=== PATIENT | female | born 1990 | race Caucasian/White ===

== ENCOUNTER 2017-05-25 08:54 | Emergency (ER) | payer BC ==
[2017-05-25 09:14] VITALS: BP 100/61
--- NOTE | 2017-05-25 09:52 | UC ---
UC General HPI - HPI Summary HPI Summary: Pt presents with sore throat, progressive body aches and nausea since last night. Pt reports non-productive cough. Left ear pain x 24 hours No n/v/d. Decreased appetite No sick contacts. Pt works at [employer] . No analgesia take today pt is on macrobid for a UTI prescribed by a provider through her insurance co Pt's medications reviewed - History of Current Complaint Chief Complaint: UCRespiratory Stated Complaint: SORE THROAT, CHILLS Time Seen by Provider: 05/25/17 09:34 Hx Obtained From: Patient Hx Last Menstrual Period: 05/19/17 Onset/Duration: Gradual Onset, Lasting Days - 24 hours Timing: Constant Onset Severity: Moderate Current Severity: Moderate Pain Intensity: 5 Associated Signs & Symptoms: Positive: Headache, Nausea, Weakness - Allergy/Home Medications Allergies/Adverse Reactions: Allergies Allergy/AdvReac Type Severity Reaction Status Date / Time No Known Allergies Allergy Verified 05/25/17 09:15 Home Medications: Home Medications Nitrofurantoin Macrocrystals* [Macrodantin*] 100 mg PO BID 05/25/17 [History Confirmed 05/25/17] PMH/Surg Hx/FS Hx/Imm Hx Previously Healthy: Yes - Surgical History Surgical History: Yes Surgery Procedure, Year, and Place: 2006--ABDOMINAL EXPLORATORY SX - Family History Known Family History: Negative: Diabetes - Social History Occupation: Employed Full-time Lives: With Family Alcohol Use: Occasionally Substance Use Type: None Smoking Status (MU): Never Smoked Tobacco Review of Systems Constitutional: Fever ENT: Sore Throat Gastrointestinal: Nausea Motor: Other - myalgias All Other Systems Reviewed And Are Negative: Yes Physical Exam Triage Information Reviewed: Yes Appearance: Well-Appearing, No Pain Distress, Well-Nourished, Other: - Pt tired appearing, appropriate A+O Vital Signs: Initial Vital Signs Temp 99.2 F 05/25/17 09:09 Pulse 101 05/25/17 09:09 Resp 16 05/25/17 09:09 BP 100/61 05/25/17 09:09 Pulse Ox 100 05/25/17 09:09 Eye Exam: Normal Eyes: Positive: Conjunctiva Clear ENT: Positive: Hearing grossly normal, Nasal congestion, Other - left TM scant fluid, no erythema, no edema turbinates inflammed, boggy + PND no erythema, no exudate uvula midline Neck exam: Normal Neck: Positive: Supple, Nontender Respiratory Exam: Normal Respiratory: Positive: Chest non-tender, Lungs clear, Normal breath sounds, No respiratory distress, No accessory muscle use Cardiovascular Exam: Normal Cardiovascular: Positive: RRR, No Murmur, Pulses Normal Abdominal Exam: Normal Abdomen Description: Positive: Nontender, No Organomegaly, Soft Bowel Sounds: Positive: Present Musculoskeletal Exam: Normal Musculoskeletal: Positive: Strength Intact, ROM Intact, No Edema Neurological Exam: Normal Neurological: Positive: Alert Psychological Exam: Normal Psychological: Positive: Normal Response To Family Skin Exam: Normal Re-Evaluation - Re-Evaluation First Eval Comment: reviewed with pt neg strep, flu. Pt with interval developmed of temp. Will start tamiflu given presentation. motrin/apap. secretion precaution, return precaution. pt comfortable and in agreement with plan Course/Dx - Course Course Of Treatment: Pt with body aches, sore throat, nausea and mylagias. Will recheck temp= feels warm to palp. APAP. strep. flu. will check urine - pt on abx. Pt comfortable and in agreement with plan - Differential Dx - Multi-Symptom Provider Diagnoses: influenza-like illness Discharge - Sign-Out/Discharge Documenting (check all that apply): Discharge - Discharge Plan Condition: Stable Disposition: HOME Prescriptions: Oseltamivir Phosphate [Tamiflu] 75 mg PO BID #10 capsule Patient Education Materials: Viral Syndrome (ED) Forms: *Work Release Referrals: Grace Maguire MD [Primary Care Provider] - Additional Instructions: - Stay well hydrated. Drink plenty of non-alcoholic, non-caffinated beverages. - Alternate ibuprofen (Advil, Motrin) 600mg and Tylenol every 3 hours for pain or fever. Take with food. Do NOT take for more than 4-5 days. - These infections are spread by secretions - do NOT share eating or drinking utensils - clean items you share with other people such as cell phones, computer mouse, TV remote, computer tablets, etc. After you have taken Tamiflu , change your toothbrush and your pillowcase. - get plenty of restful sleep - humidify the air in the room where you sleep - boil water, run a hot steam shower, vaporizer, cups of water by heat register - okay to take over the counter decongestant and cough medication - contact your doctor or return with questions or concerns - Billing Disposition and Condition Condition: STABLE Disposition: HOME
[2017-05-25] MEDS ORDERED: Acetaminophen TAB* 325 MG PO ONE (09:58)
--- NOTE | 2017-05-26 16:27 | UC ---
- Progress Note Progress Note: Pt with negative mono Please call and update pt this result Naveen 05/26/2017 Re-Evaluation - Re-Evaluation First Eval Comment: reviewed with pt neg strep, flu. Pt with interval developmed of temp. Will start tamiflu given presentation. motrin/apap. secretion precaution, return precaution. pt comfortable and in agreement with plan Discharge - Sign-Out/Discharge Documenting (check all that apply): Discharge - Discharge Plan Condition: Stable Disposition: HOME Prescriptions: Oseltamivir Phosphate [Tamiflu] 75 mg PO BID #10 capsule Patient Education Materials: Viral Syndrome (ED) Forms: *Work Release Referrals: Grace Maguire MD [Primary Care Provider] - Additional Instructions: - Stay well hydrated. Drink plenty of non-alcoholic, non-caffinated beverages. - Alternate ibuprofen (Advil, Motrin) 600mg and Tylenol every 3 hours for pain or fever. Take with food. Do NOT take for more than 4-5 days. - These infections are spread by secretions - do NOT share eating or drinking utensils - clean items you share with other people such as cell phones, computer mouse, TV remote, computer tablets, etc. After you have taken Tamiflu , change your toothbrush and your pillowcase. - get plenty of restful sleep - humidify the air in the room where you sleep - boil water, run a hot steam shower, vaporizer, cups of water by heat register - okay to take over the counter decongestant and cough medication - contact your doctor or return with questions or concerns - Billing Disposition and Condition Condition: STABLE Disposition: HOME
== END 2017-05-25 10:34 | disposition home or self-care (01) ==
LOC: UCCORT 08:54
DX: J11.1 Influenza due to unidentified influenza virus with other respiratory manifestations (principal); Z32.02 Encounter for pregnancy test, result negative
CPT/HCPCS: 81003; 84702; 87502; 87651; 99212; A9270-GY; G0463

== ENCOUNTER 2017-05-26 07:02 | Emergency (ER) | payer BC ==
[2017-05-26 07:24] VITALS: BP 106/66
--- NOTE | 2017-05-26 07:42 | UC ---
Throat Pain/Nasal Jose D HPI - HPI Summary HPI Summary: sore throat x 2 days pain is sever, worse this morning no fever, + chills, was seen at [facility] yesterday , negative rapid strep no cough, no runny nose - History of Current Complaint Chief Complaint: UCGeneralIllness Stated Complaint: RE-CHECK SORE THROAT Time Seen by Provider: 05/26/17 07:25 Hx Obtained From: Patient Hx Last Menstrual Period: 05/19/17 Onset/Duration: Gradual Onset, Lasting Days - 2, Still Present, Worse Since - this morning Severity: Severe Pain Intensity: 7 Cough: None Associated Signs & Symptoms: Negative: Dysphagia, FB Sensation, Wheezing, Hoarseness, Sinus Discomfort, Nasal Discharge, Fever, Vomiting, Rash - Allergies/Home Medications Allergies/Adverse Reactions: Allergies Allergy/AdvReac Type Severity Reaction Status Date / Time No Known Allergies Allergy Verified 05/26/17 07:18 Home Medications: Home Medications Acetaminophen [Acetaminophen Extra Strength] 2 tab PO Q6HR PRN 05/26/17 [ History Confirmed 05/26/17] PMH/Surg Hx/FS Hx/Imm Hx Previously Healthy: Yes - Surgical History Surgical History: Yes Surgery Procedure, Year, and Place: 2006--ABDOMINAL EXPLORATORY SX - Family History Known Family History: Negative: Diabetes - Social History Alcohol Use: Occasionally Substance Use Type: None Smoking Status (MU): Never Smoked Tobacco Review of Systems Constitutional: Negative Skin: Negative Eyes: Negative ENT: Sore Throat Respiratory: Negative Cardiovascular: Negative Is Patient Immunocompromised?: No All Other Systems Reviewed And Are Negative: Yes Physical Exam Triage Information Reviewed: Yes Appearance: Well-Nourished, Pain Distress Vital Signs: Initial Vital Signs Temp 98.4 F 05/26/17 07:19 Pulse 98 05/26/17 07:19 Resp 14 05/26/17 07:19 BP 106/66 05/26/17 07:19 Pulse Ox 100 05/26/17 07:19 Vital Signs Reviewed: Yes Eyes: Positive: Conjunctiva Clear ENT: Positive: Normal ENT inspection, Hearing grossly normal, Pharyngeal erythema, TMs normal. Negative: Nasal congestion, Nasal drainage, Tonsillar swelling, Tonsillar exudate Neck exam: Normal Neck: Positive: Supple, Tenderness @, Enlarged Nodes @ Respiratory: Positive: Chest non-tender, Lungs clear, Normal breath sounds Cardiovascular: Positive: Tachycardia Abdominal Exam: Normal Abdomen Description: Positive: Nontender, No Organomegaly, Soft. Negative: CVA Tenderness (R), CVA Tenderness (L), Distended, Guarding Skin Exam: Normal Throat Pain/Nasal Course/Dx - Differential Dx/Diagnosis Provider Diagnoses: PHARYNGITIS Discharge - Sign-Out/Discharge Documenting (check all that apply): Discharge - Discharge Plan Condition: Stable Disposition: HOME Prescriptions: Amoxicillin PO (*) [Amoxicillin 875 MG (*)] 875 mg PO BID #20 tab predniSONE TAB* [Deltasone TAB*] 20 mg PO DAILY #5 tab Patient Education Materials: Pharyngitis (ED) Referrals: Grace Maguire MD [Primary Care Provider] - 7 Days Additional Instructions: will check for Phelps start antibiotics , may stop abx if + for mono cont. with rest, increase fluid, take Tylenol as needed for pain Prednisone 20 mg daily - Billing Disposition and Condition Condition: STABLE Disposition: HOME
== END 2017-05-26 07:45 | disposition home or self-care (01) ==
LOC: UCCORT 07:02
DX: J02.9 Acute pharyngitis, unspecified (principal)
CPT/HCPCS: 36415; 86308; 86664; 86665; 99212; G0463

== ENCOUNTER 2017-06-09 17:12 | Emergency (ER) | payer BC ==
--- OUTSIDE RECORDS SUMMARY | 2017-06-09 17:40 | XMS REPORT ---
:1990 External Reference #:[id number] Author Organization [facility] Address [address], [address] [place] [address] Phone [phone] Care Team Providers Name Role Phone Rose Lee M.D. Primary Care Physician Unavailable Payers Type Date Identification Numbers Payment Provider Subscriber Commercial Policy Number: [id number] Brisa Thompson PayID: [id number] [address] [address] [place] [address] Problems Date Description Provider Status Onset: 01/17/2015 Crohn's disease of ileum Charly Martin MD Active Onset: 03/23/2015 Crohn's disease Rose Lee M.D. Active Social History Type Date Description Comments Lives With Parents Occupation General Maintenance Engineer ETOH Use Occasionally consumes alcohol Smoking Patient has never smoked Allergies, Adverse Reactions, Alerts Date Description Reaction Status Severity Comments 03/23/2015 NKDA active Medications Medication Date Status Form Strength Qnty SIG Indications Ordering Provider Spironolactone Active Tablets 100mg Unknown /0000 Desogestrel-Eth Active Tablets 0.15-30mg 28tab take 1 newton Dailey Estradiol / -mcg s pill by Reanna mouth every daily Amoxicillin Active Tablets 875mg Grayson, / MD Joni Prednisone Active Tablets 20mg Zarrchar, MD Joni Humira Pen Active PNKT 40mg/0.8M Unknown /0000 L Diflucan 10/14 Hx Tablets 150mg 1tabs take 1 by Alana mouth Clune, EDUCATIONAL THERAPIST - 10/25 Budesonide ER 00/00 Hx Caps ER 3mg as Unknown /0000 24HR instructed - 10/10 Humira 00 Hx PSKT 40mg/0.8M 2 x per Rose Lee, /0000 L month M.D. - 11/22 Mercaptopurine 00/00 Hx Tablets 50mg PO Q Daily Unknown /0000 - 11/22 Tramadol HCL 00 Hx Tablets 50mg take one Unknown /0000 tablet by - mouth prn 10/10 Immunizations CPT Code Status Date Vaccine Lot # [id number] Given 11/23/2015 Influenza Virus Vaccine Split Virus Use For Individual 3Yr Older 23065 Given 10/10/2006 Meningococcal Conjugate Vaccine Serogroups For Intramuscular Use 31777 Given 10/04/2003 Tetnus Injection Vital Signs Date Vital Result Comment 05/27/2017 Body Temperature 97.7 F Heart Rate 87 /min Respiratory Rate 16 /min Height 66 inches 5'6" Weight 118.00 lb BMI (Body Mass Index) 19.0 kg/m2 BSA (Body Surface Area) 1.60 m2 [place] body weight in kilograms 59 O2 % BldC Oximetry 98 % 11/23/2015 BP Systolic 108 mmHg BP Diastolic 64 mmHg Height 66 inches 5'6" Weight 126.50 lb BMI (Body Mass Index) 20.4 kg/m2 BSA (Body Surface Area) 1.65 m2 [place] body weight in kilograms 59 Last Menstrual Period [id number] 10/11/2015 BP Systolic Sitting Left Arm 110 mmHg BP Diastolic Sitting Left Arm 72 mmHg Body Temperature 97.6 F Height 66 inches 5'6" Weight 128.00 lb BMI (Body Mass Index) 20.7 kg/m2 BSA (Body Surface Area) 1.65 m2 [place] body weight in kilograms 59 Last Menstrual Period [id number] 03/23/2015 BP Systolic 108 mmHg BP Diastolic 64 mmHg Height 66 inches 5'6" Weight 120.12 lb BMI (Body Mass Index) 19.4 kg/m2 BSA (Body Surface Area) 1.61 m2 Last Menstrual Period [id number] 01/17/2015 BP Systolic 100 mmHg BP Diastolic 60 mmHg Heart Rate 72 /min Height 66 inches Weight 118.00 lb BMI (Body Mass Index) 19.0 kg/m2 Results Test Date Test Result H/L Range Note Laboratory test finding 05/26/2017 Monospot Negative Negative 1, 2 Rapid Influenza A & 05/25/2017 Influenza A Molecular NEGATIVE Negative 3 B Molecular Influenza B Molecular NEGATIVE Negative Laboratory test finding 05/25/2017 Poc , Urine Negative Negative 4 Poc Urinalysis 05/25/2017 Poc Glucose, Urine Negative Negative Poc Bilirubin, Urine Negative Negative Poc Ketone, Urine Trace Negative Poc Specific [place], Urine 1.015 1.010-1.030 Poc Blood, Urine Negative Negative Poc pH, Urine 5.5 5-9 Poc Protein, Urine Negative Negative Poc Urobilinogen, Urine 0.2 Negative Poc Nitrite, Urine Negative Negative Poc Leukocytes, Urine Negative Negative Poc Color, Urine Yellow Poc Clarity, Urine Clear 5 Laboratory test finding 05/25/2017 Rapid Strep Molecular Negative Negative 6 Pap+GC/CT+RFX HPV+ RFX gt 11/23/2015 CoPathPlus GC- CT- 7 Affirm 10/11/2015 Maggie POSITIVE 8 Gardnerella NEGATIVE Trichomonas NEGATIVE Laboratory test finding 03/28/2015 Vitamin B12 <pending> Urine Culture 03/23/2015 Urine Culture NO GROWTH: FINAL <SEE 9, 10 NOTE> Urinalysis Profile 01/23/2015 Urine Color Yellow Urine Appearance Cloudy Urine Specific [place] 1.018 1.010-1.030 Urine pH 5.0 5-9 Urine Urobilinogen Negative Negative Urine Ketones Negative Negative Urine Protein Negative Negative Urine Leukocytes Negative Negative Urine Blood Negative Negative Urine Nitrite Negative Negative Urine Bilirubin Negative Negative Urine Glucose Negative Negative CBC Auto Diff 01/23/2015 White Blood Count 9.8 10^3/uL 4.8-10.8 Red Blood Count 4.58 10^6/uL 4.0-5.4 Hemoglobin 12.7 g/dL 12.0-16.0 Hematocrit 39 % 35-47 Mean Corpuscular Volume 84 fL 80-97 Mean Corpuscular Hemoglobin 28 pg 27-31 Mean Corpuscular HGB Conc 33 g/dL 31-36 Red Cell Distribution Width 13 % 10.5-15 Platelet Count 290 10^3/uL 150-450 Mean Platelet Volume 8 um3 7.4-10.4 Abs Neutrophils 8.0 10^3/uL High 1.5-7.7 Abs Lymphocytes 1.0 10^3/uL 1.0-4.8 Abs Monocytes 0.6 10^3/uL 0-0.8 Abs Eosinophils 0.1 10^3/uL 0-0.6 Abs Basophils 0 10^3/uL 0-0.2 Abs Nucleated RBC 0.01 10^3/uL Granulocyte % 81.6 % 38-83 Lymphocyte % 10.7 % Low 25-47 Monocyte % 6.3 % 1-9 Eosinophil % 1.0 % 0-6 Basophil % 0.4 % 0-2 Nucleated Red Blood Cells % 0.1 Laboratory test finding 01/23/2015 Lactic Acid 0.8 mmol/L 0.5-2.2 Comp Metabolic Panel 01/23/2015 Sodium 136 mmol/L 133-145 Potassium 3.8 mmol/L 3.5-5.0 Chloride 101 mmol/L 101-111 Co2 Carbon Dioxide 25 mmol/L 22-32 Anion Gap 10 mmol/L 2-11 Glucose 74 mg/dL 70-100 Blood Urea Nitrogen 10 mg/dL 6-24 Creatinine 0.77 mg/dL 0.51-0.95 BUN/Creatinine Ratio 13.0 8-20 Calcium 9.6 mg/dL 8.6-10.3 Total Protein 7.7 g/dL 6.4-8.9 Albumin 4.1 g/dL 3.2-5.2 Globulin 3.6 g/dL 2-4 Albumin/Globulin Ratio 1.1 1-3 Total Bilirubin 0.30 mg/dL 0.2-1.0 Alkaline Phosphatase 71 U/L 34-104 Alt 15 U/L 7-52 Ast 12 U/L Low 13-39 Egfr Non- 90.6 >60 Egfr 116.5 >60 11 Laboratory test finding 01/23/2015 Lipase 20 U/L 11.0-82.0 C Reactive Protein 82.70 mg/L High < 5.00 12 Serum Negative Negative 1 [id number] 2 [id number] Would you like an EBV if Monospot is Negative?: Y 3 Marble Worker: [id number] 4 Marble Worker: [id number] If is still suspected, please repeat test after 48 to 72 hours. 5 Marble Worker: [id number] 6 Marble Worker: [id number] Interpretation: NEGATIVE FOR INTRAEPITHELIAL LESION OR MALIGNANCY. Specimen Adequacy: SATISFACTORY FOR EVALUATION. Additional Findings: ENDOCERVICAL/TRANSFORMATION ZONE PRESENT. This liquid-based ThinPrep Pap Test was screened with the use of the ThinPrep Imaging System and was reported using [place] System descriptive nomenclature. Cytology Laboratory [address], [address] [place] [address] CYTOLOGY REPORT Name: Caroline Thompson : 1990 (Age: 24) Sex: F Location: [facility] Med. Rec. # [id number] Date Collected: 11/23/2015 Billing #: [id number] Date Received: 11/23/2015 Requisition # [id number] Physician(s): ROSE LEE MD Source of Specimen: ENDOCERVICAL/ECTOCERVICAL THIN PREP Clinical Information: Date of Last Menstrual Period: 2 weeks ago Hormonal History: OCPs dcl Electronic Signature KONRAD Fraser (ASCP) Reported: 11/27/2015 [employer] [facility] Neisseria gonorrhoeae Date Ordered: 11/24/2015 Status: Signed Out Date Reported: 11/24/2015 Neisseria gonorrhoeae NEGATIVE Electronic Signature Kym Ball [facility] [employer] [facility] Chlamydia trachomatis Date Ordered: 11/24/2015 Status: Signed Out Date Reported: 11/24/2015 Chlamydia trachomatis NEGATIVE Electronic [facility] [facility] Dx Code(s): Z01.419 8 Special Testing Laboratory [address], [address] [place] [address] AFFIRM VAGINOSIS / VAGINITIS REPORT Name: Caroline Thompson : 1990 (Age: 24) Sex: F Location: [facility] Med. Rec. # [id number] Date Collected: 10/11/2015 Billing #: [id number] Date Received: 10/12/2015 Requisition # [id number] Physician(s): ALANA MOTA Source of Specimen: Vaginal Results: Maggie species DNA Probe POSITIVE Gardnerella vaginalis DNA Probe NEGATIVE Trichomonas vaginalis DNA Probe NEGATIVE Reported: 10/13/2015 Electronic Signature am Bennie Melo MLS (ASCP ) [facility] Dx Code(s): N76.0 9 NO GROWTH: FINAL REPORT 10 03/28/15 (FriMar 28) 09:51 AM ROSE LEE called with negative result and left VM 11 Because ethnic data is not always readily available, this report includes an eGFR for both -Americans and non- Americans. The National Kidney Disease Education Program (NKDEP) does not endorse the use of the MDRD equation for patients that are not between the ages of 18 and 70, are , have extremes of body size, muscle mass, or nutritional status, or are non- or non-. According to the National Kidney Foundation, irrespective of diagnosis, the stage of the disease is based on the level of kidney function: Stage Description GFR(mL/min/1.73 m(2)) 1 Kidney damage with normal or decreased GFR 90 2 Kidney damage with mild decrease in GFR 60-89 3 Moderate decrease in GFR 30-59 4 Severe decrease in GFR 15-29 5 Kidney failure <15 (or dialysis) 12 Acute inflammation: >10.00 Procedures Date CPT Code Description Status Comment 05/27/2017 48412 Pulse Oximetry Completed 10/25/[address] Nathan, Q5 years Encounters Type Date Location Provider CPT E/M Dx Office Visit 05/27/2017 2:00p Family Medicine MENDY Pérez, 63037 J03.90 EDUCATIONAL THERAPIST, [facility] Office Visit 11/23/2015 2:45p Family Medicine Rose Lee M.D. 89419 Z01.419 Z23 Office Visit 10/11/2015 1:15p Family Medicine NAKUL Roper 09854 N76.0 Office Visit 03/23/2015 1:15p Family Medicine Rose Lee M.D. 69387 Z00.01 R30.0 R05 K50.90 Plan of Care 05/27/2017 - MENDY Pérez, EDUCATIONAL THERAPIST, ZklafM76.90 Acute tonsillitis, unspecifiedComments:continue current treatment with abx and sterids, tylenols as needed for painonce your mono results are back if it's negative then you will probably be good once you finish your abx and sterids. if youare mono positive it's harder to say what the course might be. we'll have to wait and see.call if not continuing to improve over the next 3-5 days, new fever, new concerns/quest ins.
[2017-06-09 17:56] VITALS: BP 116/72
--- NOTE | 2017-06-09 18:46 | UC ---
Throat Pain/Nasal Jose D HPI - HPI Summary HPI Summary: Pt presents with recurrent sore throat. Pt was seen earlier this month. neg rapid strep, mono and flu. Pt had a coarse of abx, tamiflu, and prednisone. pt states was feeling better until friday. Pt states sx returned. painful with swallowing. + PND,. Pt did change toothbrush and wash pillowcase. Pt did take APAP with little relief. No drooling. Painful swallowing. Pt denies fever, chills. Pt does take humira- has not taken > 3 weeks. Pt's medications reviewed this visit - History of Current Complaint Chief Complaint: UCGeneralIllness Stated Complaint: SORE THROAT - RECHECK Time Seen by Provider: 06/09/17 18:40 Hx Obtained From: Patient Hx Last Menstrual Period: 05/20/17 Onset/Duration: Gradual Onset Pain Intensity: 7 Pain Scale Used: 0-10 Numeric - Allergies/Home Medications Allergies/Adverse Reactions: Allergies Allergy/AdvReac Type Severity Reaction Status Date / Time No Known Allergies Allergy Verified 06/09/17 17:43 Home Medications: Home Medications Adalimumab [Humira] 20 mg SC SEE INSTRUCTIONS 06/09/17 [History Confirmed ] PMH/Surg Hx/FS Hx/Imm Hx Previously Healthy: Yes GI/ History: Other - crohn's Other GI/ History: Crohn's - Surgical History Surgical History: Yes Surgery Procedure, Year, and Place: 2006--ABDOMINAL EXPLORATORY SX - Family History Known Family History: Positive: None Negative: Diabetes - Social History Occupation: Employed Full-time Lives: With Family Alcohol Use: Occasionally Substance Use Type: None Smoking Status (MU): Never Smoked Tobacco Review of Systems Constitutional: Negative Skin: Negative Eyes: Negative ENT: Sore Throat, Nasal Discharge Respiratory: Negative Cardiovascular: Negative Gastrointestinal: Negative Genitourinary: Negative Motor: Negative Neurovascular: Negative Musculoskeletal: Negative All Other Systems Reviewed And Are Negative: Yes Physical Exam Triage Information Reviewed: Yes Appearance: Well-Appearing, No Pain Distress, Well-Nourished Vital Signs: Initial Vital Signs Temp 100.3 F 06/09/17 17:48 Pulse 85 06/09/17 17:48 Resp 14 06/09/17 17:48 BP 116/72 06/09/17 17:48 Pulse Ox 100 06/09/17 17:48 Vital Signs Reviewed: Yes Eye Exam: Normal Eyes: Positive: Conjunctiva Clear ENT: Positive: Hearing grossly normal, Nasal drainage, TMs normal, Other - + PND uvula midline no guarding, no rebound Dental Exam: Normal Neck exam: Normal Neck: Positive: Supple, Nontender, No Lymphadenopathy Respiratory Exam: Normal Respiratory: Positive: Chest non-tender, Lungs clear, Normal breath sounds, No respiratory distress, No accessory muscle use Cardiovascular Exam: Normal Cardiovascular: Positive: RRR, No Murmur, Pulses Normal Abdominal Exam: Normal Abdomen Description: Positive: Nontender, No Organomegaly, Soft Bowel Sounds: Positive: Present Musculoskeletal Exam: Normal Musculoskeletal: Positive: Strength Intact Neurological Exam: Normal Neurological: Positive: Alert Psychological Exam: Normal Psychological: Positive: Normal Response To Family Skin Exam: Normal Throat Pain/Nasal Course/Dx - Course Course Of Treatment: pt with recurrent sore throat - pt with recent abx, pred. + pain with swallowing. neg strep. Will send culture. motrin/apap. decongestant. flonase. recommend ENT - referral give. pt declined lidocaine. pt comfortable and in agreement with plan - Differential Dx/Diagnosis Provider Diagnoses: pharyngitis Discharge - Sign-Out/Discharge Documenting (check all that apply): Discharge - Discharge Plan Condition: Stable Disposition: HOME Prescriptions: Fluticasone NASAL SPRAY 50MCG* [Flonase NASAL SPRAY 50MCG*] 2 spray BOTH NARES DAILY #1 btl Patient Education Materials: Pharyngitis (ED) Referrals: Oli Jeffries MD [Medical Doctor] - Grace Maguire MD [Primary Care Provider] - Additional Instructions: - Okay to alternate ibuprofen (Advil, Motrin) and Tylenol every 3 hours for pain. Take with food. Do NOT take for more than 4-5 days - Okay to gargle and spit every 4 hours as needed for pain. Okay to take throat numbing medication as prescribed. - Stay well hydrated - frequent sips of cold fluids will be soothing to your throat (popsicles, jello, ice cream, ice water). Avoid excess caffeine until your symptoms have resolved. - Do not share eating, drinking utensils. - Your throat sample has been sent for additional testing. These results will take 1-2 days to come back. If you need antibiotics, we will contact you. - It is recommended you take a decongestant in addition to the nasal spray prescribed today . Claritin-D, gurdeep-D, Zyrtec-D - It is recommended you follow-up with an ENT Specialist for your recurrent symptoms. You have been given the contact information for a specialist. - Billing Disposition and Condition Condition: STABLE Disposition: HOME
[2017-06-09] MEDS ORDERED: Lidocaine 2% VISCOUS* 15 ML UDC PO ONE (18:55)
--- NOTE | 2017-06-12 07:32 | UC ---
- Progress Note Progress Note: THROAT CULTURE + FOR hAEMOPHILIS IN[facility] - Sign-Out/Discharge Documenting (check all that apply): Discharge - Discharge Plan Condition: Stable Disposition: HOME Prescriptions: Azithromycin TAB* [Zithromax TAB (Z-ENMANUEL) 250 mg #6 tabs] 2 tab PO .TODAY, THEN 1 DAILY #1 enmanuel Fluticasone NASAL SPRAY 50MCG* [Flonase NASAL SPRAY 50MCG*] 2 spray BOTH NARES DAILY #1 btl Patient Education Materials: Pharyngitis (ED) Referrals: Oli Jeffries MD [Medical Doctor] - Grace Maguire MD [Primary Care Provider] - Additional Instructions: - Okay to alternate ibuprofen (Advil, Motrin) and Tylenol every 3 hours for pain. Take with food. Do NOT take for more than 4-5 days - Okay to gargle and spit every 4 hours as needed for pain. - Stay well hydrated - frequent sips of cold fluids will be soothing to your throat (popsicles, jello, ice cream, ice water). Avoid excess caffeine until your symptoms have resolved. - Do not share eating, drinking utensils. - Your throat sample has been sent for additional testing. These results will take 1-2 days to come back. If you need antibiotics, we will contact you. - It is recommended you take a decongestant in addition to the nasal spray prescribed today . Claritin-D, gurdeep-D, Zyrtec-D - It is recommended you follow-up with an ENT Specialist for your recurrent symptoms. You have been given the contact information for a specialist. - Billing Disposition and Condition Condition: STABLE Disposition: HOME
== END 2017-06-09 19:17 | disposition home or self-care (01) ==
LOC: UCCORT 17:12
DX: J02.9 Acute pharyngitis, unspecified (principal); K50.90 Crohn's disease, unspecified, without complications
CPT/HCPCS: 87070; 87651; 99212; G0463